=== PATIENT | male | born 1970 ===

== ENCOUNTER → 2017-04-06 | Outpatient (CLI) | payer OTHER ==
[2017-04-06 10:19] LABS: PHENY 28.7 mcg/mL (10.0-20.0)
== END | disposition home or self-care (01) ==
LOC: SPEC 09:58 → EEVIPCON 09:58
PROVIDERS: ATTEND Nurse Practitioner Family
DX: G40.909 Epilepsy, unspecified, not intractable, without status epilepticus (principal)
CPT/HCPCS: 36415; 80185